=== PATIENT | female | born 1980 | race Hispanic/Latino ===

== ENCOUNTER → 2017-03-31 | Outpatient (CLI) | payer OTHER | END | disposition home or self-care (01) | LOC: YCFC.O 14:21 | PROVIDERS: ATTEND Nurse Practitioner Family | DX: M25.571 Pain in right ankle and joints of right foot (principal) ==

== ENCOUNTER → 2018-08-31 | Outpatient (CLI) | payer OTHER ==
--- NOTE | 2018-08-31 11:23 | RAD ---
EXAM DESCRIPTION: Shoulder,Left 2 or More Views CLINICAL HISTORY: 38 yearsFemale, PAIN IN LEFT SHOULDER COMPARISON: None. IMPRESSION: 4 views of the left shoulder demonstrate no evidence of acute fracture, dislocation, or destructive osseous lesion. No significant glenohumeral or acromioclavicular degenerative changes. Visualized portions of the left lung are clear. Electronically signed by: Socrates Victor MD 08/31/2018 11:21 AM [facility]
== END ==
LOC: RAD 10:12
PROVIDERS: ATTEND Orthopaedic Surgery
DX: M25.512 Pain in left shoulder (principal)

== ENCOUNTER → 2018-09-21 | Outpatient (CLI) | payer OTHER | LOC: LAB.O 07:26 | PROVIDERS: ATTEND Nurse Practitioner Family | DX: Z00.00 Encounter for general adult medical examination without abnormal findings (principal) ==

== ENCOUNTER → 2019-02-07 | Outpatient (CLI) | payer OTHER | LOC: YCFC.O 09:06 | PROVIDERS: ATTEND Nurse Practitioner Family | DX: D64.9 Anemia, unspecified (principal) ==

== ENCOUNTER → 2019-02-14 | Outpatient (CLI) | payer OTHER | LOC: LAB.O 08:57 | PROVIDERS: ATTEND Internal Medicine Medical Oncology | DX: D72.819 Decreased white blood cell count, unspecified (principal) ==